=== PATIENT | female | born 2005 | race Caucasian/White ===

== ENCOUNTER 2024-04-15 12:52 | Emergency (ER) | payer MEDICAID ==
[~2024-04-15] VITALS: Ht 162.6 cm; Wt 89.0 kg
[2024-04-15 13:19] VITALS: BP 126/75; PULSE 87; RESP 18; TEMP 97.6; O2SAT 100
== END 2024-04-15 14:20 | disposition home or self-care (01) ==
LOC: ER 12:53
DX: S93.492A Sprain of other ligament of left ankle, initial encounter (principal); W01.0XXA Fall on same level from slipping, tripping and stumbling without subsequent striking against object, initial encounter; Y93.89 Activity, other specified; Y92.89 Other specified places as the place of occurrence of the external cause; Y99.8 Other external cause status
CPT/HCPCS: 73610; 99284; L4360

== ENCOUNTER 2024-12-31 20:48 | Emergency (ER) | payer MEDICAID ==
[~2024-12-31] VITALS: Ht 162.6 cm; Wt 95.5 kg
[2025-01-01 00:02] VITALS: TEMP 98.6
--- NOTE | 2025-01-01 01:41 | Physician Documentation ---
History of Present Illness ~ Chief Complaint: Laceration Stated Complaint: HAND LAC Time Seen by MD: 01:39 OK to notify your PCP?: Yes Source: patient, RN/MD, RN notes reviewed, old records Mode of Arrival: POV Exam Limitations: no limitations HPI 19 year old female presents to the emergency department for complaints of laceration to right palm that happened tonight. She states that while cooking dinner tonight she had used a can orthotic aide and did not remove the lid completely before grabbing the can causing it to cut her right palm. Tetanus Within 5 Years: Yes Medication Reconciliation Allergies: Coded Allergies: No Known Allergies (Unverified , 12/31/24) Scheduled Sulfamethoxazole/Trimethoprim (Bactrim Ds Tablet), 1 TAB PO Q12H Past Medical History Past Medical History: No Pertinent History Past Surgical History: no surgical history Smoking Status: Current every day smoker Alcohol Use: None Drug Use: none Review of Systems All Other Systems at this time: Reviewed and Negative ROS As stated above in the HPI, otherwise all systems are reviewed and negative. Physical Exam Vital Signs: RN Vital Signs have been reviewed: Yes, Temperature: 97.9, Source: Temporal, Heart Rate: 82, Respiratory Rate: 16, BP: 135/88, Pulse Oximetry: 98, Weight: 95.450 Oxygen Flow Rate: 0 Pulse Oximetry Reflects: adequate oxygenation Physical Exam General: The patient is well developed, well nourished, nontoxic appearing and is in no acute distress. Skin: [place], warm and dry with no rashes. HEENT: Head was normocephalic and atraumatic. Eyes - pupils equal, round, reactive to light and accommodation. Extraocular movements were intact. Conjunctivae were nonicteric. Ears - bilateral tympanic membranes were normal. The mouth and oropharynx were clear with moist mucous membranes. There were no pharyngeal exudates or erythema. Neck: Supple and nontender. There was no jugular venous distention, lymphadenopathy, thyromegaly or masses. Chest: Clear to auscultation bilaterally without wheezes, rales or rhonchi. No accessory muscle use. No dullness to percussion. Heart: Rate regular and rhythmic. S1, S2. No murmurs. Palpation of the chest wall was normal. No rubs or thrills. Abdomen: Soft, nontender and nondistended. Positive bowel sounds. No guarding or rebound. No hepatosplenomegaly or palpable masses. Extremities: 5cm laceration to right hand. No cyanosis, clubbing or edema. The patient moves all extremities. Pulses were equal and symmetric. Neurologic: Cranial nerves II-XII were intact. Sensation was intact to light touch throughout. Motor strength was 5/5 in all four extremities. Deep tendon reflexes were intact in both upper and lower extremities. Psychologic: The patient was oriented to person, place and time. The patient demonstrated appropriate judgement and insight. Procedures Laceration/Wound Repair Laceration : Location: right palm Length (cm): 5 Anesthesia: Lidocaine w/ Epi Prep: irrigated by nurse Debrided: minimal Undermining: none Margins: revised Foreign Body: not identified Repaired: skin Wound Repaired With: sutures Suture Size/Type: 4-0, ethilon Number of Superficial Sutures: 5 Layer Closure?: Yes Tolerated Procedure Well?: yes, no complications Progress Results/Orders Reviewed/noted all lab results: Yes Results/Orders Vital Signs 12/31/24 01/01/25 01/01/25 20:55 00:02 01:58 Temp 97.9 98.6 Pulse 82 80 78 Resp 16 18 18 B/P (MAP) 135/88 132/86 (101) 133/82 (99) Pulse Ox 98 99 99 O2 Flow Rate 0 Re-Evaluation Re-Evaluation : Re-Evaluation: Improved Progress Patient was seen and examined. Patient was given reassurance. Patient was found to have a laceration to her hyper thenar eminence. Sutures were applied wounds cleaned. Patient was then discharged home after repair. Tetanus is up-to-date. The wound is cleaned no prescriptions were given she was told to come back in 7-10 days. Patient tolerated the procedure without any complications. Medical Decision Making Additional info obtained from: old records Differential Dx:Considerations: Include: Abrasion, Avulsion, Contusion, Laceration, Fracture, Hematoma, Neurovascular injury, Retained foreign body, Other Departure Time of Disposition: : Disposition: 01 HOME / SELF CARE / HOMELESS Impression: Primary Impression: Laceration of right hand Qualified Codes: S61.411A - Laceration without foreign body of right hand, initial encounter Condition: Stable Discharge Instructions: Laceration Care, Adult, [id number] Departure Forms: Excuse form Work or School Excused From: Work Excuse beginning now through the following date: Jan 02, 2025 Referrals: NO PRIMARY CARE PROVIDER (PCP) Prescriptions Sulfamethoxazole/Trimethoprim (Bactrim Ds Tablet) 800 Mg-160 Mg Tablet 1 TAB PO Q12H for 7 Days, #14 TAB Prov: PHILIPPE SALCEDO MD 01/01/25 Education Educated: Patient Educated regarding: diagnosis, treatment, prognosis, need for follow up Signature Scribe Signature: Scribed for Philippe Salcedo MD by Corine Daley . 01/01/25 01:51 Attestation: The note accurately reflects work and decisions made by me.Philippe Salcedo MD 01/01/25 01:41 PHILIPPE SALCEDO MD Jan 01, 2025 01:41 CORINE BERKOWITZ Jan 01, 2025 01:53
[2025-01-01 01:58] VITALS: BP 133/82; PULSE 78; RESP 18; O2SAT 99
[2025-01-01] MEDS ORDERED: SULF1TAB49 PO (02:26)
== END 2025-01-01 02:45 | disposition home or self-care (01) ==
LOC: ER 20:48
DX: S61.411A Laceration without foreign body of right hand, initial encounter (principal); Z79.899 Other long term (current) drug therapy; F17.200 Nicotine dependence, unspecified, uncomplicated; W26.9XXA Contact with unspecified sharp object(s), initial encounter; Y93.89 Activity, other specified; Y92.89 Other specified places as the place of occurrence of the external cause; Y99.8 Other external cause status
CPT/HCPCS: 12002; 99283; A6222; 99282; A6449

== ENCOUNTER 2025-05-19 19:21 | Emergency (ER) | payer MEDICAID ==
[~2025-05-19] VITALS: Ht 162.6 cm; Wt 98.3 kg
[2025-05-19 20:15] LABS: MEAN PLATELET VOLUME 8.0 FL (7.4-10.4); RED CELL DISTRIBUTION WIDTH 13.7 % (11.5-14.5)
--- NOTE | 2025-05-19 20:41 | Physician Documentation ---
History of Present Illness ~ Chief Complaint: Complications Stated Complaint: COMPLICATIONS Time Seen by MD: 20:52 HPI This is a 20-year-old female who was eight weeks who presents with concern for vaginal spotting and abdominal cramps, patient reports that she had a normal ultrasound earlier today, patient reports the ultrasound was performed by a [employer] in only specified a uterine with heartbeat. Medication Reconciliation Allergies: Coded Allergies: No Known Allergies (Unverified , 12/31/24) Scheduled Potassium Chloride* (K-Dur*), 1 TAB PO Q12H Past Medical History Past Medical History: No Pertinent History Past Surgical History: no surgical history Alcohol Use: None Drug Use: none Review of Systems ROS As stated above in the HPI, otherwise all systems are reviewed and negative. Physical Exam Physical Exam Vital Signs: Temperature: 98.5, Source: Oral, Heart Rate: 106, Respiratory Rate: 16, BP: 115/77, Pulse Oximetry: 98, Weight: 98.300 Oxygen Flow Rate: 0 Physical Exam VITALS: Reviewed and as above. GENERAL: Alert, nontoxic appearing, no apparent distress. RESPIRATORY: No increased work of breathing, no respiratory distress, speaking in full clear sentences Progress Results/Orders Results/Orders Orders - NAY NICHOLS US OB (05/19/25 21:02) Completed Orders - NAY NICHOLS Cbc/Diff (05/19/25 19:46) CMP (05/19/25 19:46) Hcg Serum Qt (05/19/25 19:46) US OB (05/19/25 21:02) Potassium Cl Sr Tablet (K-Dur Tablet) (05/19/25 21:42) Vital Signs 05/19/25 05/19/25 05/19/25 05/19/25 19:40 21:05 21:14 23:35 Temp 98.5 98.2 98.6 Pulse 106 70 82 Resp 16 18 20 18 B/P (MAP) 115/77 115/70 (85) 116/70 Pulse Ox 98 99 99 O2 Flow Rate 0 0 Laboratory Tests Test 05/19/25 20:01 White Blood Count 7.3 Red Blood Count 4.35 Hemoglobin 12.3 Hematocrit 36.5 Mean Corpuscular Volume 83.8 Mean Corpuscular Hemoglobin 28.3 Mean Corpuscular Hemoglobin Concent 33.8 Red Cell Distribution Width 13.7 Platelet Count 254 Mean Platelet Volume 8.0 Neutrophils (%) (Auto) 69.0 Lymphocytes (%) (Auto) 20.0 L Monocytes (%) (Auto) 9.9 Eosinophils (%) (Auto) 0.6 Basophils (%) (Auto) 0.5 Neutrophils # (Auto) 5.1 Lymphocytes # (Auto) 1.5 Monocytes # (Auto) 0.7 Eosinophils # (Auto) 0.0 Basophils # (Auto) 0.0 CBC Comment Sodium Level 139 Potassium Level 3.2 L Chloride Level 105 Carbon Dioxide Level 23.0 L Anion Gap 11 Blood Urea Nitrogen 8 Creatinine 0.60 Estimated GFR/1.73 m2 > 90 BUN/Creatinine Ratio 13.3 Glucose Level 94 Calcium Level 9.4 Total Bilirubin 0.4 Aspartate Amino Transf (AST/SGOT) 17 Alanine Aminotransferase (ALT/SGPT) 27 Alkaline Phosphatase 69 Total Protein 7.3 Albumin 3.8 Globulin 3.5 Albumin/Globulin Ratio 1.1 HCG Beta Subunit [id number] Chemistry Comments EKG/XRAY/CT/US/VASC/MRI Ultrasound : Impression Exam: US OB INDICATION: Spotting/cramping TECHNIQUE: Multiple real-time grayscale transabdominal sonographic images along with color and duplex Doppler of the uterus and ovaries were obtained. COMPARISON: None FINDINGS: The uterus measures 11.3 x 6.3 x 6.1 cm. Single intrauterine gestation with crown-rump length measuring 1.6 cm corresponds with 8 weeks 0 day gestation. Yolk sac visualized. heart tones documented at 159 beats per minute. No evidence of pelvic cul-de-sac free fluid. Right ovary not visualized. Left ovary measures 4.1 x 3.5 x 3.1 cm with normal Doppler color flow. Follicle noted. IMPRESSION: 1. Single live intrauterine gestation at 8 weeks 0 days by crown-rump length criteria with positive heart tones. Estimated date of delivery 12/29/2025. Electronically Signed by:LEROY SOLIS MD Date & Time: 05/20/2525 Dictated by: LEROY SOLIS MD Dictation date and time: 05/20/2525 Medical Decision Making Additional information obtaine: N/A Findings MSE performed in triage and patient returned to ED lobby by nursing staff to await available ED room This 20-year-old female who is eight weeks presented due to concern for abdominal cramping and vaginal spotting, physical exam benign, lab work reassuring though noted to have mild hypokalemia. Ultrasound obtained demonstrating uncomplicated intrauterine . Given spotting and cramping is not severe and patient is hemodynamically stable she is appropriate for outpatient follow up, patient to follow up in two days for recheck of HCG for trending. Patient provided careful return to care precautions follow up instructions and home care instructions which she verbalized understanding of. Differential Dx:Considerations: Include: -complete, -incom plete, -inevitable, -missed, -threatened, Abruptio placentae, Active labor-, Appendicitis, Cystitis: Acute, Discomfort of , Ectopic , Ectopic preg.-ruptured, demise, Placenta previa, Pyelonephritis: Acute, Ruture of membranes, UTI, Vaginal bleeding Departure Time of Disposition: 23:25 Disposition: HOME / SELF CARE / HOMELESS Impression: Primary Impression: Vaginal bleeding affecting early Additional Impression: Hypokalemia Condition: Improved Discharge Instructions: Vaginal Bleeding During , First Trimester, Eas y-to-Read Additional Instructions: Your ultrasound and lab work was reassuring, we did notice your potassium was low please take the prescribed potassium supplement. Follow up in two days for recheck of your hCG. Please follow up with your primary care provider in the next few days. Please return to the emergency department for any new or worsening concerning symptoms. Your hCG on this visit was:[id number] Referrals: NO PRIMARY CARE PROVIDER (PCP) Prescriptions Potassium Chloride* (K-Dur*) 20 Meq Tab.prt.sr 1 TAB PO Q12H for 3 Days, #6 TAB Prov: NAY NICHOLS 05/19/25 Education Educated: Patient, Family Educated regarding: diagnosis, treatment, prognosis, need for follow up Signature Scribe Signature: no scribe Attestation: The note accurately reflects work and decisions made by me.TYLER Escalante 05/20/25 00:59 NAY NICHOLS May 19, 2025 20:41
[2025-05-19 20:50] LABS: CREATININE 0.60 MG/DL (0.40-0.90); TOTAL CARBON DIOXIDE 23.0 MMOL/L (24-32); eCRCL 127 ML/MIN; eGFR > 90 ML/MIN
[2025-05-19] MEDS: potassium Cl 20 mEq SR tablet PO STA (22:47)
[2025-05-19] MEDS ORDERED: POTA-207 PO (23:27)
[2025-05-19 23:35] VITALS: BP 116/70; PULSE 82; RESP 18; TEMP 98.6; O2SAT 99
--- NOTE | 2025-05-20 00:29 | RADIOLOGY REPORT ---
INDICATION: Spotting/cramping TECHNIQUE: Multiple real-time grayscale transabdominal sonographic images along with color and duplex Doppler of the uterus and ovaries were obtained. COMPARISON: None FINDINGS: The uterus measures 11.3 x 6.3 x 6.1 cm. Single intrauterine gestation with crown-rump length measuring 1.6 cm corresponds with 8 weeks 0 day gestation. Yolk sac visualized. heart tones documented at 159 beats per minute. No evidence of pelvic cul-de-sac free fluid. Right ovary not visualized. Left ovary measures 4.1 x 3.5 x 3.1 cm with normal Doppler color flow. Follicle noted. IMPRESSION: 1. Single live intrauterine gestation at 8 weeks 0 days by crown-rump length criteria with positive heart tones. Estimated date of delivery 12/29/2025.
== END 2025-05-19 23:37 | disposition home or self-care (01) ==
LOC: ER 19:21
DX: O20.9 Hemorrhage in early pregnancy, unspecified (principal); E87.6 Hypokalemia; Z3A.08 8 weeks gestation of pregnancy; Z79.899 Other long term (current) drug therapy
CPT/HCPCS: 36415; 76801; 80053; 84702; 85025; 99284